=== PATIENT | male | born 1945 | race Caucasian/White ===

== ENCOUNTER → 2017-11-30 | Outpatient (CLI) | payer OTHER ==
[~2017-11-30] MED LIST: ATORVASTATIN CA40 MG PO; DILANTIN100 MG PO; DIOVAN HCT 11 TABLET PO; FAMOTIDINE20 MG PO; FLORASTOR250 MG PO; KLOR-CON M1010 MEQ PO; TYLENOL EXTRA500 MG PO
== END | disposition home or self-care (01) ==
LOC: EEG 09:50
DX: R56.9 Unspecified convulsions (principal)
CPT/HCPCS: 95819